=== PATIENT | female | born 1945 | race Caucasian/White ===

== ENCOUNTER → 2020-09-20 | Outpatient (CLI) | payer MEDICARE, OTHER ==
--- NOTE | 2020-09-21 10:09 | MRI ---
EXAM DESCRIPTION: Lumbar Spine w/o Contrast : Magnetic Resonance Imaging. CLINICAL HISTORY: RADICULOPATHY COMPARISON: None. TECHNIQUE: Multiplanar, multiple standard sequences, non contrast MRI, lumbar spine. FINDINGS: L5-S1: The disc is well visualized on axial T2 series 501, image 3. Disc desiccation and minimal disc space loss. Modic type III endplate reactive changes. The left of midline with disc spur complex encroaching on the left foramen and left L5 nerve root stenosis. Hypertrophic changes in the posterior flavum ligaments in the facet joints (canal elements), more on the left and right with facet joint also encroaching on the foramen. Mild canal narrowing. Moderate narrowing of the right subarticular recess. Multifactorial borderline right foraminal stenosis. L4-L5: Disc desiccation and disc space loss more to the right than left with right side Modic type II endplate reactive changes. Disc spur complex encroaching on the right foramen with borderline stenosis and abutting the right L4 nerve. [id number] narrowing of the left foramen by disc bulging. Hypertrophic changes in the canal elements. Disc bulge posteriorly in the midline into the left of midline with left subarticular recess stenosis encroaching on the descending left L5 nerve. AP canal diameter 10 mm. L3-L4: Disc desiccation and mild disc space loss to the right of midline. Posterior broad-based bilobed herniation 5 mm with narrowing of the left subarticular recess and stenosis of the right subarticular recess. This is impressing on the right L4 nerve. Hypertrophic changes in the canal elements. AP canal diameter 9 mm. Disc space loss and disc spur combination encroaching on the right foramen and the right L3 nerve. Disc bulge and mild to moderate narrowing left foramen. L2-L3: Disc desiccation with disc space loss more midline and right of midline and moderate Modic type II endplate reactive changes. 4 mm broad-based bulge of the disc into the canal. Disc bulge into the foramina left more than right with moderate narrowing. Anterior bulge and endplate ridging. Bilateral narrowing of the subarticular recesses by disc bulge. Moderate hypertrophic changes in the canal elements. AP canal diameter 9 mm. L1-L2: Disc desiccation and minimal disc space loss. Minimal posterior bulge. Anterior bulge with endplate ridging and endplate erosion and increased disc space loss. Hypertrophic changes in the canal elements more on the left. AP canal diameter 11 mm. Mild narrowing bilateral foramina with disc bulge into the left foramen. T12-L1: Disc desiccation with disc space loss more anterior than posterior in endplate erosion. Anterior bulging and endplate ridging. Posterior mild broad-based bulge, more to the left. Narrowing of the left subarticular recess. Minimal hypertrophy of the canal elements. Bilateral foramina are patent. L2-L5 levoscoliosis. T10-L1 and L5- S1 dextroscoliosis. Paravertebral soft tissues fatty muscle atrophy paraspinal tortuous aorta without aneurysm.. Distal cord normal signal and caliber. Otherwise normal marrow signal in the remaining vertebral bodies and the posterior elements. Vertebral bodies are not compressed at any level. IMPRESSION: 1. Multilevel disc desiccation and bulging. Multilevel endplate reactive changes. Multilevel hypertrophic changes in the posterior flavum ligaments and the facet joints. Primary lower lumbar levoscoliosis. Paraspinal fatty muscle atrophy. 2. Advanced spondylosis on the left at L5-S1 with left foraminal stenosis and encroachment on the left L5 nerve root. Borderline right foraminal stenosis. Mild canal narrowing. 3. Multifactorial borderline central canal stenosis. Spondylosis on the right with borderline right foraminal stenosis and encroachment on the right L4 nerve. The posterior disc bulge with this articular recess stenosis encroaching on the left L5 nerve. 4. Multifactorial mild central canal stenosis L3-L4. Disc spur combination encroaching on the right foramen and abutting the right L3 nerve. Posterior bilobed disc herniation and stenosis of the right subarticular recess. Possible impingement right L4 nerve. 5. Please refer to FINDINGS for discussion of results at other disc space levels. Electronically signed by: Cash Bonilla MD 09/21/2020 10:07 AM [facility]
== END ==
LOC: MRI 13:53
PROVIDERS: ATTEND Emergency Medicine
DX: M51.16 Intervertebral disc disorders with radiculopathy, lumbar region (principal); M41.86 Other forms of scoliosis, lumbar region; M62.58 Muscle wasting and atrophy, not elsewhere classified, other site; M47.897 Other spondylosis, lumbosacral region; M48.061 Spinal stenosis, lumbar region without neurogenic claudication; M47.896 Other spondylosis, lumbar region